=== PATIENT | male | born 1985 | race Two or more races ===

== ENCOUNTER 2016-08-02 13:38 | Outpatient (RCR) | payer OTHER | END 2016-08-07 | LOC: M PT 13:38 | PROVIDERS: ATTEND Orthopaedic Surgery | DX: Z47.89 Encounter for other orthopedic aftercare (principal); S53.22XD Traumatic rupture of left radial collateral ligament, subsequent encounter; X58.XXXD Exposure to other specified factors, subsequent encounter ==

== ENCOUNTER → 2016-08-10 | Outpatient (REF) | payer OTHER ==
[2016-08-10 12:45] LABS: ALBUMIN 3.9 GM/DL (3.2-5.2); ALBUMIN/GLOBULIN RATIO 1.22 (1.00-1.93); ALKALINE PHOSPHATASE 73 U/L (45-117); ALT/SGPT 38 U/L (12-78); ANION GAP 8 MEQ/L (8-16); AST/SGOT 13 U/L (15-37); BILIRUBIN,TOTAL 0.6 MG/DL (0.2-1.0); BLOOD UREA NITROGEN 14 MG/DL (7-18); CARBON DIOXIDE LEVEL 28 MEQ/L (21-32); CHLORIDE LEVEL 109 MEQ/L (98-107); CHOLESTEROL LEVEL 217 MG/DL (<200); CREATININE FOR GFR 1.08 MG/DL (0.70-1.30); GLOMERULAR FILTRATION RATE > 60.0 (>60); GLUCOSE, FASTING 86 MG/DL (70-105); POTASSIUM SERUM 4.8 MEQ/L (3.5-5.1); SODIUM LEVEL 145 MEQ/L (136-145); TOTAL PROTEIN 7.1 GM/DL (6.4-8.2); TRIGLYCERIDES LEVEL 63 MG/DL (<150)
== END ==
LOC: M SFHCPLAZ 10:12
PROVIDERS: ATTEND Family Medicine
DX: Z83.3 Family history of diabetes mellitus (principal); F17.200 Nicotine dependence, unspecified, uncomplicated

== ENCOUNTER 2016-08-21 13:00 | Outpatient (RCR) | payer OTHER | END 2016-08-24 15:10 | disposition home or self-care (01) | LOC: M PT 13:00 | PROVIDERS: ATTEND Orthopaedic Surgery | DX: Z51.89 Encounter for other specified aftercare (principal); S53.22XD Traumatic rupture of left radial collateral ligament, subsequent encounter; X58.XXXD Exposure to other specified factors, subsequent encounter ==

== ENCOUNTER → 2016-10-12 | Outpatient (CLI) | payer OTHER ==
--- NOTE | 2016-10-12 12:22 | REP ---
ULTRASOUND, LEFT KNEE: Real-time sonographic evaluation of the left knee performed. Reportedly, the patient had meniscal surgery two months ago and reports a palpable abnormality beginning one month ago. There is mild complex fluid in the left knee joint. There appears to be mild subcutaneous fluid superior to the patella. In this suprapatellar region laterally is an oval heterogeneously hypoechoic area, which measures 2.7 x 2.6 x 0.8 cm. This is of unclear etiology. Differential diagnosis would include complex fluid, hematoma, or mass. Consider MRI to further evaluate. Signed by Bienvenido Regalado MD 10/12/2016 05:37 P
== END ==
LOC: M RAD 10:28
PROVIDERS: ATTEND Family Medicine
DX: M25.462 Effusion, left knee (principal)

== ENCOUNTER → 2016-11-13 | Outpatient (CLI) | payer OTHER ==
--- NOTE | 2016-11-13 12:52 | REP ---
MRI LEFT FEMUR: TECHNIQUE: Sagittal, axial, and coronal images using T1 and T2-weighting. No IV contrast was administered. There is a reported palpable abnormality in the lateral suprapatellar region and that area is marked on the skin. The area corresponds to the lateral aspect of the suprapatellar bursa. There appears to be some degree of synovial thickening in that region. There is a mild to moderate joint effusion. There is a suprapatellar plica. No osteochrondral defects are seen of the patella. There is normal marrow signal of the patella and distal femur. Medial and lateral patellar retinacular appear intact. No discrete nodule or cyst is seen in the underlying soft tissues. Cruciate ligaments appear intact. IMPRESSION: At the site of the palpable abnormality there is an underlying mild to moderate joint effusion in the suprapatellar bursa. There is some degree of synovial thickening. There is a suprapatellar plica. Findings may be related to synovitis. I do not see a discrete soft tissue mass. However, I would recommend pre and post gadolinium imaging to rule out an underlying synovial nodule. Signed by Bienvenido Regalado MD 11/13/2016 04:09 P
== END ==
LOC: M RAD 11:30
PROVIDERS: ATTEND Family Medicine
DX: M25.462 Effusion, left knee (principal); M67.52 Plica syndrome, left knee

== ENCOUNTER → 2017-11-18 | Outpatient (CLI) | payer OTHER ==
[~2017-11-18] MED LIST: E-Z-GAS II EFFERVESCENT PACKET (SODIUM BICARB./CITRIC ACID/SIMETHICONE) As Ordered; E-Z-HD 98% w/w 340GM SUSP BTL As Ordered; E-Z-PAQUE 96% w/w SUSP 176GM BTL As Ordered
== END ==
LOC: M RAD 09:53
DX: F45.8 Other somatoform disorders (principal); Z53.20 Procedure and treatment not carried out because of patient's decision for unspecified reasons